=== PATIENT | female | born 1980 | race Caucasian/White ===

== ENCOUNTER 2017-08-03 07:57 | Inpatient (IN) | payer OTHER ==
--- NOTE | 2017-07-26 09:37 | HP ---
Admitting History and Physical - Primary Care Physician PCP: Michael Cee - Admission Chief Complaint: BRCA 1 positive History of Present Illness: 36 year old premenapausal female of Ashkenazi Heritage BRCA 1 positive with strong family H/O cancer on paternal side. Mammogram 01/2017 negative. Breast MRI 04/2017 suspicious findings left breast 3:00 which was biopsied under MRI benign PASH History Source: Patient Limitations to Obtaining History: No Limitations - Past Surgical History Additional Past Surgical History: benign left breast bx 2014 and 2016 MRI core bx benign PASH - Smoking History Smoking history: Never smoked Have you smoked in the past 12 months: No - Alcohol/Substance Use Hx Alcohol Use: Yes (social) Home Medications - Allergies Allergies/Adverse Reactions: Allergies Allergy/AdvReac Type Severity Reaction Status Date / Time Sulfa (Sulfonamide Allergy Verified 07/26/17 09:35 Antibiotics) Family Disease History - Family Disease History Family Disease History: CA: Grandparent (pat GF prostate ca 83/ pat gm breast ca 70) Other Family History: pat uncle pancreatic ca 50. pat CRC 7pat GGM uterine ca 54. pat GGF gastric ca 52 Physical Examination Constitutional: Yes: Well Nourished Breast(s): Yes: Other (ptotic D cups right is slightly larger than left no palpable masses or adenopathy bilaterally) Problem List - Problems (1) BRCA gene mutation positive Code(s): Z15.01 - GENETIC SUSCEPTIBILITY TO MALIGNANT NEOPLASM OF BREAST; Z15.09 - GENETIC SUSCEPTIBILITY TO OTHER MALIGNANT NEOPLASM Assessment/Plan Bilateral total mastectomies with reconstruction
[2017-07-28 11:55] VITALS: BMI 24.9
[2017-08-03] MEDS ORDERED: ceFAZolin SODIUM 1 GM VIAL ONE ×2 (08:37→12:43)
[2017-08-03] MEDS ORDERED: GENTAMICIN SO4 80 MG/2 ML VIAL ONE (08:37)
[2017-08-03] MEDS ORDERED: ePHEDrine SULFATE 50 MG/1 ML AMPULE ONE (08:54)
[2017-08-03] MEDS ORDERED: fentaNYL CITRATE 250 MCG/5 ML VIAL ONE ×2 (08:54→10:55)
[2017-08-03] MEDS ORDERED: SUCCINYLCHOLINE CHLORIDE 200 MG/10 ML VIAL ONE (08:55)
[2017-08-03] MEDS ORDERED: ROCURONIUM BROMIDE 50 MG/5 ML VIAL ONE (08:55)
[2017-08-03] MEDS ORDERED: MIDAZOLAM HCL 2 MG/2 ML SINGLE DOSE VIAL ONE ×2 (08:55→09:01)
[2017-08-03] MEDS ORDERED: PROPOFOL 20 ML ONE ×4 (08:55)
[2017-08-03] MEDS ORDERED: DEXAMETHASONE SOD PHOSPHATE/PF 10 MG/ML SDV ONE (09:01)
[2017-08-03] MEDS ORDERED: BUPIVACAINE HCL/PF (5 MG/ML) 30 ML VIAL IJ ONE (09:01)
[2017-08-03] MEDS ORDERED: HALOPERIDOL LACTATE 5 MG/ML ONE (09:02)
[2017-08-03] MEDS ORDERED: ONDANSETRON 4 MG/2 ML VIAL IVPUSH PRN ×2 (11:31→13:53)
[2017-08-03] MEDS ORDERED: ACETAMINOPHEN 325 MG TABLET (FP) PO PRN (11:31)
[2017-08-03] MEDS ORDERED: ZOLPIDEM TARTRATE 5 MG TABLET PO PRN (11:31)
[2017-08-03] MEDS ORDERED: DEXTROSE 5%-0.45% SALINE 1,000 ML IV SCH (11:45)
[2017-08-03] MEDS ORDERED: HYDROmorphone HCL/PF 1 MG/ML VIAL (FOR PYXIS CHARGING ONLY) ONE (12:38)
[2017-08-03] MEDS ORDERED: GLYCOPYRROLATE 0.2 MG/1 ML VIAL ONE (12:43)
[2017-08-03] MEDS ORDERED: DEXAMETHASONE SOD PHOSPHATE 4 MG/1 ML VIAL ONE (12:43)
[2017-08-03] MEDS ORDERED: ONDANSETRON 4 MG/2 ML VIAL ONE (12:43)
[2017-08-03] MEDS ORDERED: KETOROLAC TROMETHAMINE 30 MG/1 ML VIAL ONE (12:43)
[2017-08-03] MEDS ORDERED: NEOSTIGMINE METHYLSULFATE 0.5 MG/ML - 10 ML MDV ONE (12:44)
[2017-08-03] MEDS ORDERED: PROMETHAZINE HCL 25 MG/1 ML VIAL IVPUSH PRN (13:53)
[2017-08-03] MEDS ORDERED: oxyCODONE HCL 5 MG TABLET PO PRN (13:53)
[2017-08-03] MEDS ORDERED: LACTATED RINGERS SOLUTION 1,000 ML IV SCH (14:00)
[2017-08-03] MEDS ORDERED: ONDANSETRON 4 MG/2 ML VIAL IVPUSH ONE (14:04)
[2017-08-03] MEDS ORDERED: ACETAMINOPHEN 325 MG TABLET (FP) PO ONE (14:15)
[2017-08-03] MEDS ORDERED: diazePAM 2 MG TABLET PO ONE (14:20)
[2017-08-03] MEDS ORDERED: diazePAM 2 MG TABLET ONE (14:20)
[2017-08-03] MEDS ORDERED: CEFAZOLIN 1 GM/D5W 1 GM/50 ML BAG IVPB SCH (15:00)
[2017-08-03] MEDS: CEFAZOLIN 1 GM/D5W 1 GM/50 ML BAG IVPB SCH ×2 (16:00→21:22)
--- NOTE | 2017-08-03 18:53 | OP ---
DATE OF OPERATION: 08/03/2017 PREOPERATIVE DIAGNOSIS: Genetic susceptibility to breast cancer, high risk, BRCA-1 positive. POSTOPERATIVE DIAGNOSIS: Genetic susceptibility to breast cancer, high risk, BRCA-1 positive. PROCEDURE: Bilateral total mastectomies with reduction pattern technique, with bilateral xptdxm-tb-[id number] reconstruction with AlloDerm. ANESTHESIA: General endotracheal. PRIMARY SURGEON: Ethel Mccallum MD JEWEL BEARING DRILLER: NORMAN Wyatt PRIMARY SURGEON FOR THE BILATERAL [id number] RECONSTRUCTION: Ethel Woods MD, with his first mate, NORMAN Hurst. COMPLICATIONS: None. Briefly, the patient is a 36-year-old G4, P2 premenopausal female of Ashkenazi-Oriental Orthodox heritage. She has a strong family history with her paternal grandfather who had prostate cancer at age 83. A paternal uncle from pancreatic cancer at age 50. A paternal great-uncle had colorectal cancer at age 70. Her paternal great-grandmother had uterine cancer at age 54. Her paternal great-grandfather has gastric cancer at age 52 and her maternal grandmother had breast cancer at age 70. The patient, as well as her father, sister and paternal cousin, all tested BRCA-1 positive with a 187 deletion A gene mutation. She has been getting close surveillance. She had an MRI-guided biopsy of the left breast in April 2017, which was negative. She decided to undergo bilateral risk-reduction mastectomy, and given her breast size and shape, it was recommended that she have a reduction pattern technique. She was seen by Dr. Woods, our plastic surgeon, for zscltw-[id number] reconstruction consultation. The patient is brought in for the procedure on August 03, 2017. In the holding area, site verification was made and informed consent was obtained. She was marked preoperatively by the plastic surgeon. She underwent a pectoral nerve block in the holding area prior to coming into the OR. DESCRIPTION OF PROCEDURE: She was laid on the OR table in the supine position. Venodynes were placed on the lower extremities prior to induction. She received Ancef IV prior to incision. Both breasts were sterilely prepped and draped in the usual fashion. Bilateral reduction pattern incisions were marked on each breast with removal of the nipples bilaterally. The left mastectomy was performed first. Incision was made and skin flaps were raised superiorly to the level of the clavicle, medially to the level of the sternum, laterally to the level of the latissimus, and inferiorly below the level of the inframammary fold. The breast was taken down off the pectoralis major muscle using electrocautery from inferomedial to superolateral, completely removed intact. It was oriented with a long lateral/short superior suture and weighed to allow for appropriate cosmetic result. Skin flaps were trimmed for good cosmetic result. The specimen was then placed in formalin and sent to Pathology as specimen. Hemostasis was achieved and the wound was copiously irrigated with warm sterile saline. The right mastectomy was performed in a similar fashion using the same reduction pattern technique. Again, skin flaps were raised superiorly to the level of the clavicle, medially to the level of the sternum, laterally to the level of the latissimus, and inferiorly below the level of the inframammary fold. The breast was taken down off the pectoralis major muscle from medial to lateral using electrocautery. It was oriented with a long lateral/short superior suture and weighed to allow for proper cosmetic result. It was placed in formalin and sent to Pathology as specimen. Hemostasis was achieved and the skin flaps were trimmed for good cosmetic result. At this point, Dr. Woods became the primary surgeon and performed bilateral subpectoral ghidwz-vx-ujggtrt reconstruction using AlloDerm sutured in the inferolateral aspects of both pectoralis major muscles. Two Magan drains were placed around each implant, brought through separate stab incisions on the lateral skin flaps, and secured in place using 3-0 nylon suture. All wounds will be closed by Plastic Surgery using absorbable suture. The patient will be recovered and extubated in the recovery room. She will be admitted postoperatively for postoperative pain management and wound management. All sponge and needle counts were correct at the end of the case. Estimated blood loss was about 125 mL. We did use the SPY skin perfusion device at the end of the case, showing good skin perfusion in both flaps. ETHEL MCCALLUM M.D. [id number]
[2017-08-03] MEDS: ACETAMINOPHEN 325 MG TABLET (FP) PO SCH (19:45)
[2017-08-03] MEDS: oxyCODONE HCL 10 MG SUSTAINED ACTING TABLET PO SCH (21:21)
[2017-08-03] MEDS: GABAPENTIN 300 MG CAPSULE (FP) PO SCH (21:21)
[2017-08-03] MEDS: diazePAM 2 MG TABLET PO SCH (21:22)
[2017-08-04] MEDS: ACETAMINOPHEN 325 MG TABLET (FP) PO SCH ×4 (02:50→19:47)
[2017-08-04] MEDS: CEFAZOLIN 1 GM/D5W 1 GM/50 ML BAG IVPB SCH ×4 (03:10→21:19)
[2017-08-04] MEDS: diazePAM 2 MG TABLET PO SCH ×3 (06:02→21:19)
[2017-08-04] MEDS: oxyCODONE HCL 5 MG TABLET PO PRN (06:03)
[2017-08-04 09:16] LABS: HEMATOCRIT 34.5 % (32.4-45.2); MCHC 34.9 g/dl (32.0-36.0); MEAN PLT VOLUME 10.2 fl (7.5-11.1); PLATELET COUNT 263 K/MM3 (134-434); RBC 4.16 M/mm3 (3.60-5.2); RDW 12.7 % (11.6-15.6); WHITE BLOOD COUNT 14.2 K/mm3 (4.0-10.8)
--- NOTE | 2017-08-04 09:38 | PN ---
Progress Note, Physician Chief Complaint: S/P bilateral mastectomy with implant reconstruction POD#1 History of Present Illness: Patient seen this am and reports left more than right chest discomfort. Otherwise without any complaints. - Current Medication List Current Medications: Active Medications Acetaminophen (Tylenol -) 650 mg PO Q4H PRN PRN Reason: FEVER Acetaminophen (Tylenol -) 650 mg PO Q6H [facility] Stop: 08/06/17 13:59 Last Admin: 08/04/17 02:50 Dose: Not Given Diazepam (Valium -) 2 mg PO Q8H [facility] Last Admin: 08/04/17 06:02 Dose: 2 mg Fentanyl (Sublimaze Injection -) 50 mcg IVPUSH [id number] PRN PRN Reason: PAIN-PACU ORDER X 4 DOSES ONLY Gabapentin (Neurontin -) 300 mg PO BID [facility] Last Admin: 08/03/17 21:21 Dose: 300 mg Dextrose/Sodium Chloride (D5-1/2ns -) 1,000 mls @ 100 mls/hr IV ASDIR [facility] Lactated Ringer's (Lactated Ringers Solution) 1,000 mls @ 75 mls/hr IV ASDIR [facility] Cefazolin Sodium (Ancef 1 Gm Premixed Ivpb -) 1 gm in 50 mls @ 100 mls/hr IVPB Q6H [facility] Stop: 08/10/17 14:00 Last Admin: 08/04/17 03:10 Dose: 100 mls/hr Lactobacillus Acidophilus (Bacid -) 1 tab PO DAILY [facility] Ondansetron HCl (Zofran Injection) 4 mg IVPUSH Q6H PRN PRN Reason: NAUSEA AND/OR VOMITING Ondansetron HCl (Zofran Injection) 4 mg IVPUSH Q6H PRN PRN Reason: NAUSEA AND/OR VOMITING Oxycodone HCl (Roxicodone -) 5 mg PO Q3H PRN PRN Reason: PAIN LEVEL 1-5 Last Admin: 08/04/17 06:03 Dose: 5 mg Oxycodone HCl (Roxicodone -) 10 mg PO Q3H PRN PRN Reason: PAIN LEVEL 6-10 Last Admin: 08/03/17 17:00 Dose: 10 mg Oxycodone HCl (Oxycontin -) 10 mg PO BID [facility] Stop: 08/06/17 13:55 Last Admin: 08/03/17 21:21 Dose: 10 mg Promethazine HCl (Phenergan Injection -) 12.5 mg IVPUSH Q6H PRN PRN Reason: NAUSEA-FOR RESCUE AFTER 15 MIN Zolpidem Tartrate (Ambien -) 5 mg PO HS PRN PRN Reason: Insomnia - Objective Vital Signs: Vital Signs Temperature 98.1 F 08/04/17 06:10 Pulse Rate 67 08/04/17 06:10 Respiratory Rate 18 08/04/17 06:10 Blood Pressure 104/54 08/04/17 06:10 O2 Sat by Pulse Oximetry (%) 100 08/04/17 06:12 Constitutional: Yes: Well Nourished, Calm Breast(s): Yes: Other (Bilateral flaps with good color. Steristrips intact without discharge or erythema. JPs with serosanginous discharge.) Problem List - Problems (1) BRCA gene mutation positive Code(s): Z15.01 - GENETIC SUSCEPTIBILITY TO MALIGNANT NEOPLASM OF BREAST; Z15.09 - GENETIC SUSCEPTIBILITY TO OTHER MALIGNANT NEOPLASM Assessment/Plan Plan: Teach REFUGIO monitoring. Pain control as per anesthesia Continue axbx Plan for discharge in am. Make appt to see Dr. Cee and Dr. Woods next week.
--- NOTE | 2017-08-04 09:48 | PN ---
Progress Note (short form) - Note Progress Note: ANESTHESIOLOGY POST-OP CHECK 37F s/p prophylactic bilateral mastectomy under general anesthesia POD #1. No acute complaints. Pain 3/10. Tolerating PO, ambulating and voiding. Denies N/V. Vital Signs Temperature 98.1 F 08/04/17 06:10 Pulse Rate 67 08/04/17 06:10 Respiratory Rate 18 08/04/17 06:10 Blood Pressure 104/54 08/04/17 06:10 O2 Sat by Pulse Oximetry (%) 100 08/04/17 06:12 Active Medications Acetaminophen (Tylenol -) 650 mg PO Q4H PRN PRN Reason: FEVER Acetaminophen (Tylenol -) 650 mg PO Q6H [facility] Stop: 08/06/17 13:59 Last Admin: 08/04/17 02:50 Dose: Not Given Diazepam (Valium -) 2 mg PO Q8H [facility] Last Admin: 08/04/17 06:02 Dose: 2 mg Fentanyl (Sublimaze Injection -) 50 mcg IVPUSH [id number] PRN PRN Reason: PAIN-PACU ORDER X 4 DOSES ONLY Gabapentin (Neurontin -) 300 mg PO BID [facility] Last Admin: 08/03/17 21:21 Dose: 300 mg Dextrose/Sodium Chloride (D5-1/2ns -) 1,000 mls @ 100 mls/hr IV ASDIR [facility] Lactated Ringer's (Lactated Ringers Solution) 1,000 mls @ 75 mls/hr IV ASDIR [facility] Cefazolin Sodium (Ancef 1 Gm Premixed Ivpb -) 1 gm in 50 mls @ 100 mls/hr IVPB Q6H [facility] Stop: 08/10/17 14:00 Last Admin: 08/04/17 03:10 Dose: 100 mls/hr Lactobacillus Acidophilus (Bacid -) 1 tab PO DAILY [facility] Ondansetron HCl (Zofran Injection) 4 mg IVPUSH Q6H PRN PRN Reason: NAUSEA AND/OR VOMITING Ondansetron HCl (Zofran Injection) 4 mg IVPUSH Q6H PRN PRN Reason: NAUSEA AND/OR VOMITING Oxycodone HCl (Roxicodone -) 5 mg PO Q3H PRN PRN Reason: PAIN LEVEL 1-5 Last Admin: 08/04/17 06:03 Dose: 5 mg Oxycodone HCl (Roxicodone -) 10 mg PO Q3H PRN PRN Reason: PAIN LEVEL 6-10 Last Admin: 08/03/17 17:00 Dose: 10 mg Oxycodone HCl (Oxycontin -) 10 mg PO BID [facility] Stop: 08/06/17 13:55 Last Admin: 08/03/17 21:21 Dose: 10 mg Promethazine HCl (Phenergan Injection -) 12.5 mg IVPUSH Q6H PRN PRN Reason: NAUSEA-FOR RESCUE AFTER 15 MIN Zolpidem Tartrate (Ambien -) 5 mg PO HS PRN PRN Reason: Insomnia Gen: Awake, alert No apparent anesthesia complications. Pain well controlled. Continue management as per primary team.
[2017-08-04] MEDS ORDERED: LACTOBACILLUS ACIDOPHILUS 1 EACH TAB (FP) PO SCH (10:00)
[2017-08-04] MEDS: GABAPENTIN 300 MG CAPSULE (FP) PO SCH ×2 (10:25→21:19)
[2017-08-04] MEDS: oxyCODONE HCL 10 MG SUSTAINED ACTING TABLET PO SCH ×2 (10:25→21:19)
--- NOTE | 2017-08-04 15:22 | PATH ---
Surgical Pathology Report Patient Name: TL ZUÑIGA Med. Rec. #: [id number] /Age/Gender: 1980 (Age: 37) / F Account: [id number] Location: [facility] Taken: 08/03/2017 Received: 08/03/2017 Reported: 08/04/2017 Physicians: Michael Cee M.D. Specimen(s) Received A: RIGHT BREAST B: LEFT BREAST Clinical History Bilateral prophylactic BRCA+ Final Diagnosis A. BREAST, RIGHT, MASTECTOMY: BENIGN BREAST TISSUE WITH FIBROCYSTIC CHANGES INCLUDING STROMAL FIBROSIS, MICROCYST FORMATION, COLUMNAR CELL AND FOCAL SECRETORY CHANGES. SKIN AND NIPPLE WITHOUT SIGNIFICANT PATHOLOGIC FINDINGS. B. BREAST, LEFT, MASTECTOMY: BENIGN BREAST TISSUE WITH FIBROCYSTIC CHANGES INCLUDING STROMAL FIBROSIS, MICROCYST FORMATION, APOCRINE METAPLASIA, USUAL DUCTAL HYPERPLASIA, COLUMNAR CELL AND FOCAL SECRETORY CHANGES WITH ASSOCIATED MICROCALCIFICATIONS. SKIN AND NIPPLE WITHOUT SIGNIFICANT PATHOLOGIC FINDINGS. Electronically Signed Elza Rea M.D. Gross Description A. Received in formalin, labeled "right breast," is a 647 gram, 16.0 x 15.5 x 4.8 cm. right mastectomy specimen with a short suture marking the superior aspect and a long suture marking the lateral aspect of the specimen, per the surgeon. The anterior surface displays a 13.0 x 12.5 cm moise, triangular portion of skin with a 1.1 cm in diameter nipple. The deep margin is inked black and the anterior soft tissue margin is inked blue. The specimen is serially sectioned from lateral to medial. Sectioning reveals abundant dense, white fibrous tissue. No definitive mass is identified. Bread Room Hand sections are submitted in 14 cassettes as follows: 1-serially sectioned nipple; 2-subareolar shave; 3-4-upper outer quadrant; 5-6-lower outer quadrant; 7-8-upper inner quadrant; 9-10-lower inner quadrant; 23-87-lxjwrxribqjl tissue; 13-skin and anterior soft tissue margin; 14-deep margin. B. Received in formalin, labeled "left breast," is a 732 gram, 16.5 x 15.0 x 5.0 cm. left mastectomy specimen with a short suture marking the superior aspect and a long suture marking the lateral aspect of the specimen, per the surgeon. The anterior surface displays a 13.0 x 11.5 cm moise, triangular portion of skin with a 1.2 cm diameter nipple. The deep margin is inked black and the anterior soft tissue margin is inked blue. The specimen is serially sectioned from medial to lateral. Sectioning reveals abundant dense, white fibrous tissue. No definitive mass is identified. Bread Room Hand sections are submitted in 14 cassettes as follows: 1-serially sectioned nipple; 2-subareolar shave; 3-4-upper outer quadrant; 5-6-lower outer quadrant; 7-8-upper inner quadrant; 9-10-lower inner quadrant; 65-07-hfaihbbrwany tissue; 13-skin and anterior soft tissue margin; 14-deep margin. Time to formalin fixation: Approximately 1 hour Total formalin fixation time: Approximately 11 hours. 08/03/201708/03/2017
[2017-08-05] MEDS: CEFAZOLIN 1 GM/D5W 1 GM/50 ML BAG IVPB SCH (03:12)
[2017-08-05 06:37] VITALS: BP 106/56; PULSE 79; TEMP 97.6
[2017-08-05] MEDS: ACETAMINOPHEN 325 MG TABLET (FP) PO SCH ×2 (06:44→08:13)
[2017-08-05] MEDS: diazePAM 2 MG TABLET PO SCH (06:44)
[2017-08-05] MEDS: oxyCODONE HCL 5 MG TABLET PO PRN (08:14)
--- NOTE | 2017-08-05 09:52 | PN ---
Progress Note, Physician Chief Complaint: Patient with strong family history of breast cancer and with genetic predisposition BRCA1+ History of Present Illness: The patient was diagnosed BRCA1+ and decided to go forward with bilateral prophylactic mastectomies with direct to implant reconstructions - Current Medication List Current Medications: Active Medications Acetaminophen (Tylenol -) 650 mg PO Q4H PRN PRN Reason: FEVER Acetaminophen (Tylenol -) 650 mg PO Q6H [facility] Stop: 08/06/17 13:59 Last Admin: 08/05/17 08:13 Dose: 650 mg Diazepam (Valium -) 2 mg PO Q8H [facility] Last Admin: 08/05/17 06:44 Dose: 2 mg Fentanyl (Sublimaze Injection -) 50 mcg IVPUSH [id number] PRN PRN Reason: PAIN-PACU ORDER X 4 DOSES ONLY Gabapentin (Neurontin -) 300 mg PO BID [facility] Last Admin: 08/04/17 21:19 Dose: 300 mg Dextrose/Sodium Chloride (D5-1/2ns -) 1,000 mls @ 100 mls/hr IV ASDIR [facility] Lactated Ringer's (Lactated Ringers Solution) 1,000 mls @ 75 mls/hr IV ASDIR [facility] Cefazolin Sodium (Ancef 1 Gm Premixed Ivpb -) 1 gm in 50 mls @ 100 mls/hr IVPB Q6H [facility] Stop: 08/10/17 14:00 Last Admin: 08/05/17 03:12 Dose: 100 mls/hr Lactobacillus Acidophilus (Bacid -) 1 tab PO DAILY [facility] Last Admin: 08/04/17 10:25 Dose: 1 tab Ondansetron HCl (Zofran Injection) 4 mg IVPUSH Q6H PRN PRN Reason: NAUSEA AND/OR VOMITING Ondansetron HCl (Zofran Injection) 4 mg IVPUSH Q6H PRN PRN Reason: NAUSEA AND/OR VOMITING Oxycodone HCl (Roxicodone -) 5 mg PO Q3H PRN PRN Reason: PAIN LEVEL 1-5 Last Admin: 08/05/17 08:14 Dose: 5 mg Oxycodone HCl (Roxicodone -) 10 mg PO Q3H PRN PRN Reason: PAIN LEVEL 6-10 Last Admin: 08/03/17 17:00 Dose: 10 mg Oxycodone HCl (Oxycontin -) 10 mg PO BID [facility] Stop: 08/06/17 13:55 Last Admin: 08/04/17 21:19 Dose: 10 mg Promethazine HCl (Phenergan Injection -) 12.5 mg IVPUSH Q6H PRN PRN Reason: NAUSEA-FOR RESCUE AFTER 15 MIN Zolpidem Tartrate (Ambien -) 5 mg PO HS PRN PRN Reason: Insomnia - Objective Vital Signs: Vital Signs Temperature 97.6 F 08/05/17 06:00 Pulse Rate 79 08/05/17 06:00 Respiratory Rate 18 08/05/17 06:00 Blood Pressure 106/56 08/05/17 06:00 O2 Sat by Pulse Oximetry (%) 99 08/05/17 06:00 Constitutional: Yes: Well Nourished, No Distress Eyes: Yes: WNL HENT: Yes: Atraumatic, Normocephalic Neck: Yes: WNL Cardiovascular: Yes: Regular Rate and Rhythm Respiratory: Yes: Regular, CTA Bilaterally Gastrointestinal: Yes: Normal Bowel Sounds, Soft ...Rectal Exam: Yes: Deferred Genitourinary: Yes: WNL Breast(s): Yes: Other (Wounds clean, dry, and intact. Skin flaps viable. Drains functioning well.) Musculoskeletal: Yes: WNL Extremities: Yes: WNL Wound/Incision: Yes: Clean/Dry, Well Approximated Neurological: Yes: Alert, Oriented ...Motor Strength: WNL Psychiatric: Yes: WNL Labs: CBC, BMP 08/04/17 08:00 Problem List - Problems (1) BRCA gene mutation positive Assessment/Plan: The patient is doing well POD#2 s/p bilateral total mastectomies with direct to implant reconstruction with alloderm. Wounds clean, dry, and intact. Drains functioning well. Good pain control. Stable for discharge today. Follow up in office in 1 [address]rs[address] Cee and Chuck. Percocet for pain and cefadroxil BID. Code(s): Z15.01 - GENETIC SUSCEPTIBILITY TO MALIGNANT NEOPLASM OF BREAST; Z15.09 - GENETIC SUSCEPTIBILITY TO OTHER MALIGNANT NEOPLASM
[2017-08-05] MEDS: oxyCODONE HCL 10 MG SUSTAINED ACTING TABLET PO SCH (09:55)
[2017-08-05] MEDS: GABAPENTIN 300 MG CAPSULE (FP) PO SCH (09:55)
--- NOTE | 2017-08-05 10:01 | DS ---
Physical Examination Vital Signs: Vital Signs Temperature 97.6 F 08/05/17 06:00 Pulse Rate 79 08/05/17 06:00 Respiratory Rate 18 08/05/17 06:00 Blood Pressure 106/56 08/05/17 06:00 O2 Sat by Pulse Oximetry (%) 99 08/05/17 06:00 Constitutional: Yes: Well Nourished, No Distress, Calm Eyes: Yes: WNL HENT: Yes: WNL Neck: Yes: WNL Cardiovascular: Yes: Regular Rate and Rhythm Respiratory: Yes: Regular, CTA Bilaterally Gastrointestinal: Yes: Normal Bowel Sounds, Soft ...Rectal Exam: Yes: Deferred Renal/: Yes: WNL Breast(s): Yes: Other (Wounds clean, dry, and intact. Skin flaps warm and viable. Drains functioning well) Musculoskeletal: Yes: WNL Extremities: Yes: WNL Integumentary: Yes: WNL Wound/Incision: Yes: Clean/Dry, Well Approximated Neurological: Yes: Alert, Oriented ...Motor Strength: WNL Psychiatric: Yes: WNL Labs: CBC, BMP 08/04/17 08:00 Discharge Summary Reason For Visit: GENETIC SUSCEPTIBILITY Genetic susceptibility for breast cancer BRCA1+ Procedures: Principal: Bilateral total mastectomies with bilateral direct to implant reconstruction with alloderm Hospital Course: The patient was admitted post-operatively for wound management and pain management. She did well post-op and had good pain control by POD#2 and was stable for discharge POD#2. Condition: Good - Instructions Diet, Activity, Other Instructions: Regular diet. Record drain outputs daily. Keep compressive bra in place night/ day. No heavy lifting or exercise. No bath or shower until drains removed. Referrals: Jagdish Woods MD [Staff Physician] - Michael Cee MD [Staff Physician] - Disposition: HOME - Home Medications Comprehensive Discharge Medication List: Ambulatory Orders Lactobacillus Rhamnosus GG [Culturelle] 1 each PO DAILY 07/28/17 Multivitamins [Tab-A-Vit -] 1 tab PO DAILY 07/28/17
--- NOTE | 2017-08-06 07:49 | OP ---
DATE OF OPERATION: 08/04/2017 PREOPERATIVE DIAGNOSIS: Bilateral acquired chest wall deformity status post bilateral mastectomy. POSTOPERATIVE DIAGNOSIS: Bilateral acquired chest wall deformity status post bilateral mastectomy. PROCEDURE: 1. Right immediate breast reconstruction utilizing immediate insertion of silicone breast implant and DermACELL reconstruction. 2. Left immediate breast reconstruction utilizing immediate insertion of silicone breast implant and DermACELL reconstruction. 3. Intravenous injection of isocyanide green dye and intraoperative diagnostic evaluation of non-coronary intraoperative fluorescein vascular angiography x 2. SURGEON: Ethel Woods MD ELECTRO MECHANICAL SOLAR TECHNICIAN: NORMAN Hurst ANESTHESIA: General. OPERATIVE PROCEDURE IN DETAIL: The patient was taken to the operating room. After induction of general anesthesia in the supine position, both arms were extended and padded. Venodyne boots were placed. The entire chest wall was painted with ChloraPrep solution over its entire extent, and sterile drapes were placed in the usual fashion. The markings, which had been made in the standing position preoperatively, were reoutlined with the patient's knowledge. Time-out procedure was performed. Attention was turned by Dr. Ethel Cee to the mastectomies. Bilateral inframammary incisions were made and Dr. Cee performed mastectomies. This will be dictated under separate cover. Upon completion of the mastectomies, the wounds were copiously irrigated and attention was turned to the right breast. A subpectoral dissection was begun on the right breast, superiorly from the 2nd rib, medially to the sternal fibers, and down to the inframammary fold, elevating the pectoralis major muscle from its insertion. At this point, an 8.0 x 16.0 sheet of DermACELL was brought into the field and sutured superiorly along the pectoralis major muscle after rehydration. This was carried along the lateral mammary fold and down the side of the breast reconstruction. At this point, a Natrelle Inspira Soft Touch, style SSF, implant was chosen; 450 mL placed bilaterally. The left breast tissue removed was 750 gm, and the right breast approximately 700 gm. This implant was placed and then sutured with 3-0 Vicryl suture continued along the inframammary fold, completely covering the implant itself. The exact same procedure was carried out symmetrically on the opposite breast, also placing a Natrelle Inspira Soft Touch, style SSF, implant in the same subpectoral pocket. Good symmetry was seen in the sitting position. She also AlloDerm Contour Perforated medium placed bilaterally. After the implants were in place, the patient was injected with 10 mL of isocyanide green dye, and the Spy imaging system was brought into the field. The dye flowed to the right and left breasts and the nipple areolar complex, and the entire skin flaps were evaluated and seen to be viable with good blood flow. Two August-Govea drains were brought out through separate stab wounds laterally. The Smart Infuser pump catheter was inserted medially and into the subpectoral position. Both wounds were closed symmetrically using 3-0 PDS suture on the deep tissue, 3-0 in a deep dermal fashion, and 4-0 in a subcuticular fashion. Both wounds were dressed sterilely with Mastisol and Steri-Strips with a surgical bra and a compression strap. The patient tolerated the procedure well. She was awakened, extubated and transferred to the recovery room in satisfactory condition. The field administrative assistant was present during the entire portion of the operation and closure. ETHEL WOODS M.D. [id number]
== END 2017-08-05 10:30 | disposition home or self-care (01) | DRG 585 ==
LOC: FM/S 07:57
PROVIDERS: ADMIT Surgery Surgical Oncology; ATTEND Surgery Surgical Oncology
PROC: 0HTV0ZZ Resection of Bilateral Breast, Open Approach (ICD-10-PCS; principal; 2017-08-03 10:16)
PROC: 0HUV0JZ Supplement Bilateral Breast with Synthetic Substitute, Open Approach (ICD-10-PCS; 2017-08-03 10:16)
DX: Z40.01 Encounter for prophylactic removal of breast (principal); Z15.01 Genetic susceptibility to malignant neoplasm of breast; M95.4 Acquired deformity of chest and rib
CPT/HCPCS: 36415; 84703; 85027; 88307-TC; 94760